=== PATIENT | female | born 1985 | race Asian ===

== ENCOUNTER 2022-09-02 10:36 | Emergency (ER) | payer SELFPAY ==
[~2022-09-02] VITALS: Ht 157.5 cm; Wt 48.0 kg
[2022-09-02] MEDS ORDERED: IBUPROFEN 400MG TABLET PO ONE (13:45)
[2022-09-02] MEDS ORDERED: IBUP-2028 MT (13:46)
[2022-09-02 15:07] VITALS: BP 112/75
== END 2022-09-02 16:08 | disposition home or self-care (01) ==
LOC: ER 10:36
DX: S09.90XA Unspecified injury of head, initial encounter (principal); S46.912A Strain of unspecified muscle, fascia and tendon at shoulder and upper arm level, left arm, initial encounter; V49.49XA Driver injured in collision with other motor vehicles in traffic accident, initial encounter; Y93.89 Activity, other specified; Y92.89 Other specified places as the place of occurrence of the external cause; Y99.8 Other external cause status
CPT/HCPCS: 99284